=== PATIENT | male | born 1950 | race African-American/Black ===

== ENCOUNTER → 2017-01-10 | Outpatient (CLI) | payer MEDICARE | LOC: MW.CHGS 13:30 | PROVIDERS: ATTEND Surgery | DX: N18.6 End stage renal disease (principal) | CPT/HCPCS: 99203 ==

== ENCOUNTER 2017-01-19 11:38 | Day surgery (SDC) | payer MEDICARE ==
[~2017-01-19 11:38] MED LIST: Bupivacaine 0.5% 10 ML SDV ONE; Lactated Ringers 1,000 ML IV SCH; Lidocaine 1% 20 ML MDV ONE; Sodium Chloride 0.9% 10 ML Syringe FLUSH PRN; Sodium Chloride 0.9% 2.5 ML Syringe FLUSH PRN; ceFAZolin 1 GM in Premix Bag 1 BAG IV ONE
--- NOTE | 2017-01-19 11:54 | PCM.PREANE ---
Preanesthetic Assessment - Anesthesia/Transfusion/Family Hx Anesthesia History: Prior Anesthesia Without Reaction Family History of Anesthesia Reaction: No Transfusion History: No Prior Transfusion(s) Intubation History: Unknown - Review of Systems General: No Symptoms Pulmonary: No Symptoms Cardiovascular: No Symptoms Gastrointestinal: No symptoms Neurological: No Symptoms Other: Reports: None - Physical Assessment Height: 1.68 m Weight: 78.925 kg ASA Class: 3 Mental Status: Alert & Oriented x3 Airway Class: Mallampati = 2 Dentition: Reports: Normal Dentition Thyro-Mental Finger Breadths: 3 Mouth Opening Finger Breadths: 2 ROM/Head Extension: Limited/Partial Lungs: Clear to auscultation, Normal respiratory effort Cardiovascular: Regular Rate, Regular Rhythm - Allergies Allergies/Adverse Reactions: Allergies Allergy/AdvReac Type Severity Reaction Status Date / Time No Known Allergies Allergy Verified 01/17/17 10:08 - Blood Blood Available: No - Anesthesia Plan Pre-Op Medication Ordered: None - Acknowledgements Anesthesia Type Planned: MAC Pt an Appropriate Candidate for the Planned Anesthesia: Yes Alternatives and Risks of Anesthesia Discussed w Pt/Guardian: Yes Pt/Guardian Understands and Agrees with Anesthesia Plan: Yes PreAnesthesia Questionnaire HEENT History: Reports: Cataract, Glaucoma Cardiovascular History: Reports: Heart Failure, High cholesterol, Hypertension, SOB on exertion Gastrointestinal History: Reports: GERD, Hepatitis Other Gastrointestinal History: hx hepatitis C, states has been treated for this Genitourinary History: Reports: Chronic renal insuffiency, Dialysis Musculoskeletal History: Reports: Arthritis, Gout Neurological History: Reports: TIA Other Neuro History: states hx of "mild stroke" Endocrine/Metabolic History: Reports: Diabetes, type II Hematologic History: Reports: None - Past Surgical History Head Surgeries/Procedures: Reports: None GI Surgical History: Reports: Colonoscopy Other GI Surgeries/Procedures: hx exploratory laparotomy Other Male Surgeries/Procedures: hx arteriovenous surgery creationof A-V fistula x2 and port-a cath placement Musculoskeletal Surgical History: Reports: Arthroscopic knee (right knee) - SUBSTANCE USE Smoking Status *Q: Never Smoker Recreational Drug Use History: No - HOME MEDS Home Medications: Home Meds Allopurinol [Zyloprim] 100 mg PO DAILY 01/17/17 [History] Aspirin [[place] Aspirin] 81 mg PO DAILY 01/17/17 [History] Carvedilol 25 mg PO BID 01/17/17 [History] Colchicine 0.6 mg PO ASDIRECTED 01/17/17 [History] Doxazosin [Cardura] 1 mg PO BEDTIME 01/17/17 [History] Enalapril [Vasotec] 5 mg PO BID 01/17/17 [History] Folic Acid 1 mg PO DAILY 01/17/17 [History] Furosemide [Lasix] 40 mg PO BID 01/17/17 [History] Iron Polysaccharides Complex [Ferrex 150] 1 tab PO BID 01/17/17 [History] NIFEdipine [Procardia Xl] 60 mg PO BID 01/17/17 [History] Sevelamer Carbonate [Renvela] 3 tab PO TID 01/17/17 [History] Vitamin B Complex 1 tab PO DAILY 01/17/17 [History] atorvaSTATin Calcium [Atorvastatin Calcium] 40 mg PO BEDTIME 01/17/17 [History] glipiZIDE [Glipizide Xl] 10 mg PO DAILY 01/17/17 [History] - CURRENT (IN HOUSE) MEDS Current Meds: Current Medications Lactated Ringer's (Ringers, Lactated) 1,000 mls @ 125 mls/hr IV ASDIRECTED MARLENY Sodium Chloride (Saline Flush) 10 ml FLUSH ASDIRECTED PRN PRN Reason: Keep Vein Open Sodium Chloride (Saline Flush) 2.5 ml FLUSH ASDIRECTED PRN PRN Reason: Keep Vein Open Discontinued Medications Bupivacaine HCl (Sensorcaine-Mpf 0.5%) Confirm Administered Dose 30 ml .ROUTE .STK-MED ONE Stop: 01/19/17 11:24 Cefazolin Sodium/Dextrose 1 gm (/ Premix) 50 mls @ 100 mls/hr IV ONETIME ONE Stop: 01/18/17 18:23 Lidocaine HCl (Xylocaine 1%) Confirm Administered Dose 20 ml .ROUTE .STK-MED ONE Stop: 01/19/17 11:24
[2017-01-19] MEDS ORDERED: Propofol 200 MG/20 ML SDV ONE (13:05)
[2017-01-19] MEDS ORDERED: fentaNYL 100 MCG/2 ML SDV ONE (13:05)
--- NOTE | 2017-01-19 13:48 | PCM.OPNOTE ---
- General Post-Op/Procedure Note Date of Surgery/Procedure: 01/19/17 Operative Procedure(s): Removal right internal jugular dialysis catheter Findings: Intact tunneled dialysis catheter Pre Op Diagnosis: ESRD Post-Op Diagnosis: ESRD Anesthesia Technique: Local, MAC Primary Surgeon: Vivien Jimenez EBL in mLs: 5 Condition: Good
--- NOTE | 2017-01-19 13:57 | PCM.POSTAN ---
POST ANESTHESIA ASSESSMENT - MENTAL STATUS Mental Status: alert, oriented - RESPIRATORY Respiratory Status: respiratory rate WNL, airway patent, O2 saturation stable - CARDIOVASCULAR CV Status: pulse rate WNL, blood pressure stable - GASTROINTESTINAL GI Status: no symptoms - PAIN Pain Score: 0 - POST OP HYDRATION Hydration Status: adequate & stable
[2017-01-19] MEDS ORDERED: Sodium Chloride 0.9% 1,000 ML IV SCH (14:30)
[2017-01-19 15:19] VITALS: BP 139/70
--- NOTE | 2017-01-19 20:29 | OR ---
SURGEON: DEISI BENITEZ MD DATE OF PROCEDURE: 01/19/2017 PREOPERATIVE DIAGNOSIS: End-stage renal disease. POSTOPERATIVE DIAGNOSIS: End-stage renal disease. PROCEDURE PERFORMED: Removal of right internal jugular dialysis catheter. ANESTHESIA: MAC, local. ESTIMATED BLOOD LOSS: 5 mL. FINDINGS: Intact appearing tunneled cuffed dialysis catheter. COMPLICATIONS: None. INDICATIONS: The patient is a 66-year-old male with end-stage renal disease. In the past he needed a tunneled cuffed catheter placed for emergency dialysis. The patient then had a left AV fistula created which matured properly and is now being used for dialysis. The patient no longer needs the dialysis catheter in his right internal jugular vein. We discussed the procedure, preprocedural course, and the risks of the procedure including bleeding, infection, or damage to surrounding structures. The patient verbalized understanding and wished to proceed. NARRATIVE: The patient was brought into the operating room suite and placed supine in his operative room cart. A time-out was completed verifying the patient's name, age, date of , allergies, and procedure to be performed. The right neck and chest as well as the catheter were prepped and draped in usual standard fashion. Once monitored anesthesia care was induced, I then anesthetized the area around the catheter using 1% lidocaine plain. The previously placed permanent sutures were clipped and removed from the chest wall. I then took a Metzenbaum scissors and made a 1 cm incision superiorly along the skin overlying the catheter. This helped me to identify the catheter and the felt cuff that was located more proximally. The felt cuff and catheter tubing was well scarred in to place. Using a combination of blunt dissection using hemostats and Metzenbaum scissors, I freed the catheter and felt cuff from the surrounding scar tissue. I was then able to gently pull on the catheter and remove it from the patient's vascular system. Pressure was then held at the right internal jugular vein for a total of 5 minutes. The catheter was inspected and found to be intact. Given that the catheter has been in place for a long period of time, I did not close the small wound, but instead packed it with quarter-inch iodoform Nu Gauze and placed a Tegaderm over the top. Prior to doing that, hemostasis was achieved using electrocautery. The patient tolerated the procedure well and was taken to the PACU in stable condition. Counts were complete and correct at the end of the case. BLAINE / YANDEL /[id number]
== END 2017-01-19 15:02 | disposition home or self-care (01) ==
LOC: MW.SDS 11:38
PROVIDERS: ATTEND Surgery
PROC: 05CM3ZZ Extirpation of Matter from Right Internal Jugular Vein, Percutaneous Approach (ICD-10-PCS; principal; 2017-01-19)
DX: Z49.01 Encounter for fitting and adjustment of extracorporeal dialysis catheter (principal); I13.2 Hypertensive heart and chronic kidney disease with heart failure and with stage 5 chronic kidney disease, or end stage renal disease; E11.22 Type 2 diabetes mellitus with diabetic chronic kidney disease; N18.6 End stage renal disease; I50.9 Heart failure, unspecified; Z99.2 Dependence on renal dialysis; H26.9 Unspecified cataract; H40.9 Unspecified glaucoma; E78.00 Pure hypercholesterolemia, unspecified; K21.9 Gastro-esophageal reflux disease without esophagitis; M19.90 Unspecified osteoarthritis, unspecified site; M10.9 Gout, unspecified; Z86.73 Personal history of transient ischemic attack (TIA), and cerebral infarction without residual deficits; Z86.19 Personal history of other infectious and parasitic diseases; Z79.82 Long term (current) use of aspirin; Z79.84 Long term (current) use of oral hypoglycemic drugs; Z79.899 Other long term (current) drug therapy; Z98.890 Other specified postprocedural states
CPT/HCPCS: 36589; J0690; J3010; J7040; 00532; 88300; J2704

== ENCOUNTER 2018-01-19 15:11 | Emergency (ER) | payer MEDICARE ==
--- NOTE | 2018-01-19 15:24 | EDM.PDOC ---
ED HPI GENERAL MEDICAL PROBLEM - General Chief Complaint: General Stated Complaint: HICCUPS,SOB Time Seen by Provider: 01/19/18 15:13 Source of Information: Reports: Patient History Limitations: Reports: No Limitations - History of Present Illness INITIAL COMMENTS - FREE TEXT/NARRATIVE: HISTORY AND PHYSICAL: History of present illness: Patient is a 67-year-old male who presents to the emergency room today with complaints of shortness of breath and hiccups 5 days. He states he started hiccuping on Monday and has not unable to resolve this with any [id number] /home remedies. He was seen and evaluated in [facility] on Monday. He reports that he had labs, EKG and chest x-ray which were all unremarkable. He reports he has had episodes where he would have hiccups ranging from a few hours to 2-3 days, "but never this long". He denies any chest pain, chills, cough, abdominal pain, nausea, vomiting, diarrhea or constipation. Review of systems: As per history of present illness and below otherwise all systems reviewed and negative. Past medical history: As per history of present illness and as reviewed below otherwise noncontributory. Surgical history: As per history of present illness and as reviewed below otherwise noncontributory. Social history: No reported history of drug or alcohol abuse. Family history: As per history of present illness and as reviewed below otherwise noncontributory. Physical exam: General: Well-developed and well-nourished 67-year-old male. Alert and oriented. Nontoxic appearing and in no acute distress. HEENT: Atraumatic, normocephalic, pupils equal and reactive bilaterally, negative for conjunctival pallor or scleral icterus, mucous membranes moist, throat clear, neck supple, nontender, trachea midline. No drooling or trismus noted. No meningeal signs Lungs: Clear to auscultation, breath sounds equal bilaterally, chest nontender. Heart: S1S2, regular rate and rhythm without overt murmur Abdomen: Soft, nondistended, nontender. Negative for masses or hepatosplenomegaly. Negative for costovertebral tenderness. Pelvis: Stable nontender. Genitourinary: Deferred. Rectal: Deferred. Skin: Intact, warm, dry. No lesions or rashes noted. Extremities: Atraumatic, negative for cords or calf pain. Neurovascular unremarkable. Neuro: Awake, alert, oriented. Cranial nerves II through XII unremarkable. Cerebellum unremarkable. Motor and sensory unremarkable throughout. Exam nonfocal. Notes: 10/19/2017: Patient had a esophagram completed. Findings showed a small sliding hiatal hernia without reflux. No stricture, obstruction or mucosal abnormality of any significance. After the Thorazine was given his hiccups resolved. He states he feels better at this time. No significant findings in his labs. EKG and chest x-ray are unremarkable. Diagnostics: CBC, CMP, troponin, EKG, one view chest, strep screen Therapeutics: IV fluid, thorazine IM Impression: Hiccups Plan: 1. Please make sure you are eating well rounded meals and drinking plenty of water. 2. Follow up with your primary care provider within the next 1-2 days. Return to the ED as needed and as discussed. Definitive disposition and diagnosis as appropriate pending reevaluation and review of above. Duration: Day(s): Location: Reports: Chest Bilateral Chest Pain Score (Numeric/FACES): 8 - Related Data Allergies Allergy/AdvReac Type Severity Reaction Status Date / Time No Known Allergies Allergy Verified 01/17/17 10:08 Home Meds: Home Meds Allopurinol [Zyloprim] 100 mg PO DAILY 01/17/17 [History] Aspirin [[place] Aspirin] 81 mg PO DAILY 01/17/17 [History] Carvedilol 25 mg PO BID 01/17/17 [History] Colchicine 0.6 mg PO ASDIRECTED 01/17/17 [History] Doxazosin [Cardura] 1 mg PO BEDTIME 01/17/17 [History] Enalapril [Vasotec] 5 mg PO BID 01/17/17 [History] Folic Acid 1 mg PO DAILY 01/17/17 [History] Furosemide [Lasix] 40 mg PO BID 01/17/17 [History] Iron Polysaccharides Complex [Ferrex 150] 1 tab PO BID 01/17/17 [History] NIFEdipine [Procardia Xl] 60 mg PO BID 01/17/17 [History] Sevelamer Carbonate [Renvela] 3 tab PO TID 01/17/17 [History] Vitamin B Complex 1 tab PO DAILY 01/17/17 [History] atorvaSTATin Calcium [Atorvastatin Calcium] 40 mg PO BEDTIME 01/17/17 [History] glipiZIDE [Glipizide Xl] 10 mg PO DAILY 01/17/17 [History] Past Medical History HEENT History: Reports: Cataract, Glaucoma Cardiovascular History: Reports: Heart Failure, High Cholesterol, Hypertension, SOB on Exertion Gastrointestinal History: Reports: GERD, Hepatitis Other Gastrointestinal History: hx hepatitis C, states has been treated for this Genitourinary History: Reports: Chronic Renal Insuffiency, Dialysis Musculoskeletal History: Reports: Arthritis, Gout Neurological History: Reports: TIA Other Neuro History: states hx of "mild stroke" Endocrine/Metabolic History: Reports: Diabetes, Type II Hematologic History: Reports: None - Past Surgical History Musculoskeletal Surgical History: Reports: Arthroscopic Knee Social & Family History - Tobacco Use Smoking Status *Q: Never Smoker - Caffeine Use Caffeine Use: Reports: Soda - Recreational Drug Use Recreational Drug Use: No ED ROS GENERAL - Review of Systems Review Of Systems: ROS reveals no pertinent complaints other than HPI. ED EXAM, GENERAL - Physical Exam Exam: See Below (See dictation) Course - Vital Signs Last Recorded V/S: Last Vital Signs Temp 98.3 F 01/19/18 15:24 Pulse 75 01/19/18 15:24 Resp 18 01/19/18 15:24 BP 127/60 01/19/18 15:24 Pulse Ox 95 01/19/18 15:24 - Orders/Labs/Meds Orders: Active Orders 24 hr Category Date Time Status CULTURE STREP A CONFIRMATION [RM] Stat Lab 01/19/18 15:45 Results STREP SCRN A RAPID W CULT CONF [RM] Stat Lab 01/19/18 15:45 Ordered Labs: Laboratory Tests 01/19/18 01/19/18 Range/Units 15:40 15:40 WBC 6.36 (4.0-11.0) K/uL RBC 3.52 L (4.50-5.90) M/uL Hgb 11.2 L (13.0-17.0) g/dL Hct 31.8 L (38.0-50.0) % MCV 90.3 (80.0-98.0) fL MCH 31.8 (27.0-32.0) pg MCHC 35.2 (31.0-37.0) g/dL RDW Std Deviation 44.5 (28.0-62.0) fl RDW Coeff of Roseann 14 (11.0-15.0) % Plt Count 192 (150-400) K/uL MPV 10.00 (7.40-12.00) fL Neut % (Auto) 69.9 (48.0-80.0) % Lymph % (Auto) 17.5 (16.0-40.0) % [place] % (Auto) 10.8 (0.0-15.0) % Eos % (Auto) 1.6 (0.0-7.0) % Baso % (Auto) 0.2 (0.0-1.5) % Neut # (Auto) 4.5 (1.4-5.7) K/uL Lymph # (Auto) 1.1 (0.6-2.4) K/uL [place] # (Auto) 0.7 (0.0-0.8) K/uL Eos # (Auto) 0.1 (0.0-0.7) K/uL Baso # (Auto) 0.0 (0.0-0.1) K/uL Nucleated RBC % 0.0 /100WBC Nucleated RBCs # 0 K/uL Sodium 133 L (136-148) mmol/L Potassium 3.5 (3.5-5.1) mmol/L Chloride 94 L (98-107) mmol/L Carbon Dioxide 29.0 (21.0-32.0) mmol/L BUN 8 (7.0-18.0) mg/dL Creatinine 3.0 H (0.8-1.3) mg/dL Est Cr Clr Drug Dosing TNP Estimated GFR (MDRD) 25.3 ml/min Glucose 189 H (74-106) mg/dL Calcium 8.9 (8.5-10.1) mg/dL Total Bilirubin 0.5 (0.2-1.0) mg/dL AST 15 (15-37) IU/L ALT 17 (14-63) IU/L Alkaline Phosphatase 91 (46-116) U/L Troponin I < 0.050 (0.000-0.056) ng/mL Total Protein 8.5 H (6.4-8.2) g/dL Albumin 3.9 (3.4-5.0) g/dL Globulin 4.6 H (2.0-3.5) g/dL Albumin/Globulin Ratio 0.9 L (1.3-2.8) Meds: Medications Discontinued Medications Generic Name Dose Route Start Last Admin Trade Name Saqibq PRN Reason Stop Dose Admin Chlorpromazine HCl 25 mg 01/19/18 15:45 01/19/18 16:11 Thorazine IM 01/19/18 15:46 25 mg ONETIME ONE Administration Sodium Chloride 1,000 mls @ 999 mls/hr 01/19/18 15:34 01/19/18 16:11 Normal Saline IV 01/19/18 16:34 999 mls/hr STAT ONE Administration Departure - Departure Time of Disposition: 16:46 Disposition: Home, Self-Care 01 Clinical Impression: Hiccups - Discharge Information Instructions: Hiccups Referrals: PCP,Unknown [Primary Care Provider] - Forms: ED Department Discharge Additional Instructions: The following information is given to patients seen in the emergency department who are being discharged to home. This information is to outline your options for follow-up care. We provide all patients seen in our emergency department with a follow-up referral. The need for follow-up, as well as the timing and circumstances, are variable depending upon the specifics of your emergency department visit. If you don't have a primary care physician on staff, we will provide you with a referral. We always advise you to contact your personal physician following an emergency department visit to inform them of the circumstance of the visit and for follow-up with them and/or the need for any referrals to a consulting specialist. The emergency department will also refer you to a specialist when appropriate. This referral assures that you have the opportunity for follow-up care with a specialist. All of these measure are taken in an effort to provide you with optimal care, which includes your follow-up. Under all circumstances we always encourage you to contact your private physician who remains a resource for coordinating your care. When calling for follow-up care, please make the office aware that this follow-up is from your recent emergency room visit. If for any reason you are refused follow-up, please contact the [facility] Emergency Department at and asked to speak to the emergency department charge nurse. [facility] [address] [place] [id number] 1. Please make sure you are eating well rounded meals and drinking plenty of water. 2. Follow up with your primary care provider within the next 1-2 days. Return to the ED as needed and as discussed. - My Orders Last 24 Hours: My Active Orders 01/19/18 15:45 CULTURE STREP A CONFIRMATION [RM] Stat STREP SCRN A RAPID W CULT CONF [RM] Stat - Assessment/Plan Last 24 Hours: My Active Orders 01/19/18 15:45 CULTURE STREP A CONFIRMATION [RM] Stat STREP SCRN A RAPID W CULT CONF [RM] Stat
[2018-01-19] MEDS ORDERED: Sodium Chloride 0.9% 1,000 ML IV ONE (15:34)
[2018-01-19] MEDS ORDERED: chlorproMAZINE 50 MG/2 ML Amp IM ONE (15:45)
--- NOTE | 2018-01-19 16:00 | CR ---
EXAMINATION: Two-view chest (PA and Lateral views). HISTORY: Shortness of breath. FINDINGS: The trachea is midline. The cardiomediastinal silhouette is within normal limits. No pulmonary infilt rates, effusions or pneumothorax. Osseous structures appear unremarkable. IMPRESSION: No acute cardiopulmonary process.
[2018-01-19 16:36] LABS: CHLORIDE,CL 94 mmol/L (98-107); SODIUM,NA 133 mmol/L (136-148)
[2018-01-19 17:00] VITALS: BP 135/63
== END 2018-01-19 16:56 | disposition home or self-care (01) ==
LOC: MW.ED 15:11
DX: R06.6 Hiccough (principal); I13.0 Hypertensive heart and chronic kidney disease with heart failure and stage 1 through stage 4 chronic kidney disease, or unspecified chronic kidney disease; I50.9 Heart failure, unspecified; N18.9 Chronic kidney disease, unspecified; E11.22 Type 2 diabetes mellitus with diabetic chronic kidney disease; E78.00 Pure hypercholesterolemia, unspecified; Z79.82 Long term (current) use of aspirin; Z79.899 Other long term (current) drug therapy; Z86.73 Personal history of transient ischemic attack (TIA), and cerebral infarction without residual deficits; Z79.84 Long term (current) use of oral hypoglycemic drugs
CPT/HCPCS: 36415; 71046; 80053; 84484; 85025; 87081; 87880; 96360; 96372; 99283; J3230; J7040

== ENCOUNTER 2020-07-10 08:46 | Day surgery (SDC) | payer MEDICARE ==
[~2020-07-10 08:46] MED LIST changes: -Bupivacaine 0.5% 10 ML SDV ONE; -Lidocaine 1% 20 ML MDV ONE; -Sodium Chloride 0.9% 10 ML Syringe FLUSH PRN; -Sodium Chloride 0.9% 2.5 ML Syringe FLUSH PRN; -ceFAZolin 1 GM in Premix Bag 1 BAG IV ONE
--- NOTE | 2020-07-10 10:14 | PCM.PREANE ---
Preanesthetic Assessment - Anesthesia/Transfusion/Family Hx Anesthesia History: Prior Anesthesia Without Reaction Family History of Anesthesia Reaction: No Transfusion History: No Prior Transfusion(s) Intubation History: Unknown - Review of Systems General: No Symptoms Pulmonary: No Symptoms Cardiovascular: No Symptoms Gastrointestinal: Other (dysphagia last 2-3 months, lost 10 pounds) Neurological: No Symptoms Other: Reports: None - Physical Assessment Vital Signs: Last Vital Signs Temp 36.5 C 07/10/20 09:54 Pulse 65 07/10/20 09:54 Resp 16 07/10/20 09:54 BP 153/71 H 07/10/20 09:54 Pulse Ox 97 07/10/20 09:54 Height: 5 ft 6 in Weight: 75.296 kg ASA Class: 3 Mental Status: Alert & Oriented x3 Airway Class: Mallampati = 2 Dentition: Reports: Edentulous (upper), Missing Tooth/Teeth (most lower teeth missing, no loos teeth) Thyro-Mental Finger Breadths: 3 Mouth Opening Finger Breadths: 3 ROM/Head Extension: Limited/Partial Lungs: Normal Respiratory Effort, Decreased Breath Sounds Cardiovascular: Regular Rate, Regular Rhythm - Allergies Allergies/Adverse Reactions: Allergies Allergy/AdvReac Type Severity Reaction Status Date / Time No Known Allergies Allergy Verified 07/06/20 12:48 - Blood Blood Available: No - Anesthesia Plan Pre-Op Medication Ordered: None - Acknowledgements Anesthesia Type Planned: MAC Pt an Appropriate Candidate for the Planned Anesthesia: Yes Alternatives and Risks of Anesthesia Discussed w Pt/Guardian: Yes Pt/Guardian Understands and Agrees with Anesthesia Plan: Yes PreAnesthesia Questionnaire HEENT History: Reports: Cataract, Glaucoma Cardiovascular History: Reports: High Cholesterol, Hypertension, SOB on Exertion Respiratory History: Reports: None Gastrointestinal History: Reports: GERD, Hepatitis Other Gastrointestinal History: hx hepatitis C, states has been treated for this Genitourinary History: Reports: Chronic Renal Insuffiency, Dialysis Other Genitourinary History: states does dialysis Tues, Thur, and Sat. states has been doing dialysis for 4 years Musculoskeletal History: Reports: Arthritis, Gout Neurological History: Reports: Neuropathy, Diabetic Psychiatric History: Reports: None Endocrine/Metabolic History: Reports: Diabetes, Type II Hematologic History: Reports: None Immunologic History: Reports: None Oncologic (Cancer) History: Reports: None Dermatologic History: Reports: None - Infectious Disease History Infectious Disease History: Reports: Hepatitis C (received treatment) - Past Surgical History Head Surgeries/Procedures: Reports: None Cardiovascular Surgical History: Reports: None, Vascular Surgery (left arm A-V fistila) GI Surgical History: Reports: Colonoscopy Other GI Surgeries/Procedures: hx exploratory laparotomy Female Surgical History: Reports: None Other Male Surgeries/Procedures: has AV fistula Musculoskeletal Surgical History: Reports: Arthroscopic Knee (right) Oncologic Surgical History: Reports: None - SUBSTANCE USE Tobacco Use Status *Q: Never Tobacco User - HOME MEDS Home Medications: Home Meds Allopurinol [Zyloprim] 100 mg PO DAILY 01/17/17 [History] Aspirin [[place] Aspirin EC] 81 mg PO DAILY 01/17/17 [History] Furosemide [Lasix] 40 mg PO BID 01/17/17 [History] Sevelamer Carbonate [Renvela] 2,400 mg PO ASDIRECTED 01/17/17 [History] atorvaSTATin Calcium [Atorvastatin Calcium] 40 mg PO BEDTIME 01/17/17 [History] carvediloL [Carvedilol] 25 mg PO BIDMEALS 01/17/17 [History] glipiZIDE [Glipizide Xl] 10 mg PO DAILY 01/17/17 [History] Calcium Acetate 662 tab PO TIDMEALS 01/19/18 [History] NIFEdipine [Adalat cc] 60 mg PO DAILY 01/19/18 [History] Vitamin B Complex 1 tab PO DAILY 07/07/20 [History] - CURRENT (IN HOUSE) MEDS Current Meds: Current Medications Lactated Ringer's (Ringers, Lactated) 1,000 mls @ 125 mls/hr IV ASDIRECTED [facility]
[2020-07-10] MEDS ORDERED: Propofol 200 MG/20 ML SDV ONE (11:22)
--- NOTE | 2020-07-10 11:40 | PCM.OPNOTE ---
- General Post-Op/Procedure Note Date of Surgery/Procedure: 07/10/20 Operative Procedure(s): Esophagogastroduodenoscopy with gastric biopsies and balloon dilatation of distal esophageal stricture to 54 Thai. Pre Op Diagnosis: Progressive dysphagia. Unexplained weight loss. Post-Op Diagnosis: Mild to moderate gastritis. Distal esophageal stricture. Anesthesia Technique: MAC (ASA III) Primary Surgeon: Kendrick Neil Condition: Good Free Text/Narrative:: DICTATION [id number] CPT CODE 92048
[2020-07-10] MEDS ORDERED: Lactated Ringers 1,000 ML IV SCH (11:45)
--- NOTE | 2020-07-10 11:48 | PCM.POSTAN ---
POST ANESTHESIA ASSESSMENT - MENTAL STATUS Mental Status: Alert, Oriented - VITAL SIGNS Vital Signs: Last Vital Signs Temp 36.5 C 07/10/20 09:54 Pulse 90 07/10/20 11:42 Resp 16 07/10/20 11:42 BP 134/73 07/10/20 11:42 Pulse Ox 96 07/10/20 11:42 - RESPIRATORY Respiratory Status: Respiratory Rate WNL, Airway Patent, O2 Saturation Stable - CARDIOVASCULAR CV Status: Pulse Rate WNL, Blood Pressure Stable - GASTROINTESTINAL GI Status: No Symptoms - PAIN Pain Score: 0 - POST OP HYDRATION Hydration Status: Adequate & Stable - OBSERVATIONS Free Text/Narrative:: No anesthesia problems
--- NOTE | 2020-07-10 12:02 | PCM48HPAN ---
Post Anesthesia Note - EVALUATION WITHIN 48HRS OF ANESTHETIC Vital Signs in Normal Range: Yes Patient Participated in Evaluation: Yes Respiratory Function Stable: Yes Airway Patent: Yes Cardiovascular Function Stable: Yes Hydration Status Stable: Yes Pain Control Satisfactory: Yes Nausea and Vomiting Control Satisfactory: Yes Mental Status Recovered: Yes Vital Signs: Last Vital Signs Temp 36.5 C 07/10/20 09:54 Pulse 90 07/10/20 11:42 Resp 16 07/10/20 11:42 BP 134/73 07/10/20 11:42 Pulse Ox 96 07/10/20 11:42 - COMMENTS/OBSERVATIONS Free Text/Narrative:: No anesthesia problems
[2020-07-10 12:39] VITALS: BP 144/73; PULSE 83
--- NOTE | 2020-07-10 13:18 | OR ---
SURGEON: Kendrick Neil M.D. DATE OF PROCEDURE: 07/10/2020 OPERATION PERFORMED: Esophagogastroduodenoscopy with gastric biopsies and balloon dilatation of an esophageal stricture to 54-Prydeinig. PRIMARY SURGEON: Kendrick Neil M.D. ANESTHESIA: MAC ASA CLASSIFICATION: III. PREOPERATIVE DIAGNOSIS: Dysphagia with weight loss. POSTOPERATIVE DIAGNOSIS: Distal esophageal stricture. DESCRIPTION OF PROCEDURE: The patient was taken to the endoscopy room and positioned on the endoscopy table in the supine position. Time-out was called for appropriate identification of the patient and procedure. Monitored anesthesia care was provided. The bite block was placed between the patient's teeth. The gastroscope was inserted through the bite block into the oropharynx and advanced through the esophagus without difficulty. There was a stricture at the GE junction, but I was able to with minimal pressure, advance the scope through this area through the stomach AND into the duodenum where examination was now carried out in a retrograde fashion. The duodenum shows no acute inflammatory changes or ulcerations. The stomach does show npxt-lo-stncicky gastritis. Antral biopsies were obtained to look for the presence of Helicobacter pylori. The gastroscope was then retroflexed to visualize the proximal stomach. No lesions were noted proximally. No ulcers were noted along the greater or lesser curvature. As the scope was withdrawn, this was withdrawn to just above the stricture. The balloon dilators were brought to the bedside, and using the balloon dilators, we were able to dilate him to a 54-Prydeinig. The balloon was inflated 3 separate times holding pressure for a full minute. Once we had completed the 3rd dilatation, the balloon was deflated and removed and the gastroscope advanced through this area much more easily. The esophageal mucosa does appear intact, although there was some bleeding present. The mid and proximal esophagus were well visualized. No significant longitudinal contractions were noted. The vocal cords were not visualized as the scope was withdrawn. The scope was then removed with the patient having tolerated the procedure well. He was taken to recovery room in stable condition. JUAN / YANDEL /[id number]
== END 2020-07-10 12:37 | disposition home or self-care (01) ==
LOC: MW.SDS 08:46
PROVIDERS: ATTEND Surgery
DX: K22.2 Esophageal obstruction (principal); K29.50 Unspecified chronic gastritis without bleeding; N18.6 End stage renal disease; I12.0 Hypertensive chronic kidney disease with stage 5 chronic kidney disease or end stage renal disease; E78.00 Pure hypercholesterolemia, unspecified; G62.9 Polyneuropathy, unspecified; E11.22 Type 2 diabetes mellitus with diabetic chronic kidney disease; E11.40 Type 2 diabetes mellitus with diabetic neuropathy, unspecified; B19.20 Unspecified viral hepatitis C without hepatic coma; K21.9 Gastro-esophageal reflux disease without esophagitis; Z79.82 Long term (current) use of aspirin; Z79.899 Other long term (current) drug therapy; Z79.84 Long term (current) use of oral hypoglycemic drugs; Z98.890 Other specified postprocedural states
CPT/HCPCS: 43239; 43249; J2704; C1726